=== PATIENT | female | born 1990 | race Caucasian/White ===

== ENCOUNTER 2024-11-08 06:18 | Day surgery (SDC) | payer OTHER ==
[2024-11-02 11:32] VITALS: BP 97/67
[2024-11-02 12:11] LABS: PH,URINE 7.5 (5.0-8.0); URINE APPEARANCE Clear; URINE BILIRRUBIN Negative (NEGATIVE); URINE BLOOD Trace; URINE COLOR Yellow; URINE GLUCOSE Negative (NEGATIVE); URINE KETONE Negative (NEGATIVE); URINE LEUKOCYTE Negative; URINE NITRATE Negative; URINE PROTEIN Negative (NEGATIVE); URINE UROBILINOGEN 0.2 E.U./dl
[2024-11-02 12:14] LABS: HEMATOCRIT 39.1 % (36.0-45.00); HEMOGLOBIN 13.4 g/dL (12.0-15.00); MEAN CORPUSCULAR HEMOGLOBIN 30.4 pg (27.00-32.0); MEAN CORPUSCULAR HGB CONC 34.2 g/dl (32.0-36.0); PLATELET COUNT 276 K/uL (150-450); RED CELL DISTRIBUTION WIDTH 12.4 % (11.5-14.5)
[2024-11-02 12:15] LABS: URINE EPITHELIAL CELLS 13.5 uL (0.0-38.8); URINE RBC 5.3 uL (0.0-20.8); URINE WBC 4.8 uL (0.0-23.2)
[2024-11-02 12:22] LABS: INR 1.05; PARTIAL THROMBOPLASTIN TIME 29.9 SECONDS (22.0-34.0); PROTHROMBIN TIME 11.4 SECONDS (9.0-11.5)
[2024-11-02 13:02] LABS: ALBUMIN 4.7 gm/dL (3.4-5.0); BILIRUBIN TOTAL 0.83 mg/dL (0.3-1.2); CALCIUM 9.6 mg/dL (8.5-10.1); CREATININE SERUM 0.64 mg/dL (0.55-1.02); GFR 106.87; GLOBULINA 3.8 G/DL (2.4-3.5); POTASSIUM 3.99 mEq/L (3.5-5.1); TOTAL PROTEIN 8.5 gm/dL (6.4-8.2)
[~2024-11-08] VITALS: Ht 160 cm; Wt 51.7 kg
[~2024-11-08 06:18] MED LIST: TYLENOL-CODEINE1 TAB PO
[2024-11-08] MEDS ORDERED: CEFAZOLIN SODIUM 1,000 MG VIAL ONE (10:16)
[2024-11-08] MEDS ORDERED: POVIDONE-IODINE 118 ML BOTT TOP ONE (11:39)
[2024-11-08] MEDS ORDERED: DOXYCYCLINE HY100 M2 PO (13:18)
[2024-11-08] MEDS ORDERED: NAPROXEN500 MG PO (13:18)
[2024-11-08] MEDS ORDERED: MORPHINE SULFATE 4 MG/ML VIAL IV ONE (15:00)
== END 2024-11-08 17:15 | disposition home or self-care (01) ==
LOC: CIR.AMB 06:18
PROVIDERS: ATTEND Obstetrics & Gynecology
DX: D25.0 Submucous leiomyoma of uterus (principal); N84.0 Polyp of corpus uteri; N92.1 Excessive and frequent menstruation with irregular cycle; N87.0 Mild cervical dysplasia; N72 Inflammatory disease of cervix uteri